=== PATIENT | male | born 1950 | race Asian ===

== ENCOUNTER 2024-01-22 19:41 | Emergency (ER) | payer MEDICAID ==
[~2024-01-22] VITALS: Ht 160 cm; Wt 64.9 kg
[2024-01-22 19:51] VITALS: BP_SYST 141; PULSE 74; RESP 20; TEMP 98.3; O2SAT 98
[2024-01-22] MEDS: AMOXICILLIN/POTASSIUM CLAV 875 MG TABLET PO ONE (20:48)
[2024-01-22] MEDS ORDERED: AUG875 PO (20:52)
[2024-01-22 21:00] VITALS: BP_SYST 141; PULSE 74; RESP 20; TEMP 98.3; O2SAT 98
[2024-01-22] MEDS: DIPHTH,PERTUSS(ACELL),TET VAC 0.5 ML VIAL (Tdap) I.M. ONE (21:02)
== END 2024-01-22 21:00 | disposition home or self-care (01) ==
LOC: SED 19:41
DX: S61.432A Puncture wound without foreign body of left hand, initial encounter (principal); Z79.2 Long term (current) use of antibiotics; W54.0XXA Bitten by dog, initial encounter; Y93.89 Activity, other specified; Y92.89 Other specified places as the place of occurrence of the external cause; Y99.8 Other external cause status
CPT/HCPCS: 99283

== ENCOUNTER 2024-01-29 10:35 | Emergency (ER) | payer MEDICAID ==
[~2024-01-29] VITALS: Ht 160 cm; Wt 63.5 kg
[~2024-01-29 10:35] MED LIST: AUG875 PO
[2024-01-29 10:39] VITALS: BP_SYST 136; PULSE 77; RESP 18; TEMP 98.2; O2SAT 98
[2024-01-29 11:14] VITALS: BP_SYST 136; PULSE 86; RESP 18; TEMP 98.2; O2SAT 98
== END 2024-01-29 11:15 | disposition home or self-care (01) ==
LOC: SED 10:35
DX: S61.412A Laceration without foreign body of left hand, initial encounter (principal); Z79.2 Long term (current) use of antibiotics; W26.8XXA Contact with other sharp object(s), not elsewhere classified, initial encounter; Y93.89 Activity, other specified; Y92.89 Other specified places as the place of occurrence of the external cause; Y99.8 Other external cause status
CPT/HCPCS: 99282

== ENCOUNTER 2024-02-14 17:53 | Emergency (ER) | payer MEDICAID ==
[~2024-02-14 17:53] MED LIST changes: +NEOM28.36 TP
== END 2024-02-14 18:55 | disposition left against medical advice (07) ==
LOC: SED 17:53
DX: Z48.02 Encounter for removal of sutures (principal); Z53.21 Procedure and treatment not carried out due to patient leaving prior to being seen by health care provider

== ENCOUNTER 2024-02-16 08:11 | Emergency (ER) | payer MEDICAID ==
[~2024-02-16] VITALS: Ht 152.4 cm; Wt 59.0 kg
[2024-02-16 08:17] VITALS: BP_SYST 122; PULSE 89; RESP 18; TEMP 98.3; O2SAT 98
[2024-02-16 08:49] VITALS: BP_SYST 122; PULSE 89; RESP 18; TEMP 98.3; O2SAT 98
== END 2024-02-16 08:49 | disposition home or self-care (01) ==
LOC: SED 08:11
DX: S61.211D Laceration without foreign body of left index finger without damage to nail, subsequent encounter (principal); Z48.02 Encounter for removal of sutures; I10 Essential (primary) hypertension; E78.5 Hyperlipidemia, unspecified; Z79.899 Other long term (current) drug therapy; Z79.2 Long term (current) use of antibiotics; X58.XXXD Exposure to other specified factors, subsequent encounter
CPT/HCPCS: 99281